=== PATIENT | female | born 1950 | race Asian ===

== ENCOUNTER 2023-10-04 07:40 | Outpatient (CLI) | payer MEDICARE | END 2023-10-04 07:41 | disposition home or self-care (01) | LOC: EDUNIT# 07:40 → CSHMAMMO 07:40 | PROVIDERS: ATTEND Internal Medicine | DX: N64.89 Other specified disorders of breast (principal); R92.331 Mammographic heterogeneous density, right breast | CPT/HCPCS: 76642; 77065; G0279 ==

== ENCOUNTER 2024-04-07 13:18 | Outpatient (CLI) | payer MEDICARE | END 2024-04-07 13:19 | disposition home or self-care (01) | LOC: CSHMAMMO 13:18 | PROVIDERS: ATTEND Internal Medicine | DX: R92.8 Other abnormal and inconclusive findings on diagnostic imaging of breast (principal); N64.89 Other specified disorders of breast | CPT/HCPCS: 76642; 77065; G0279 ==

== ENCOUNTER 2024-09-23 14:30 | Outpatient (CLI) | payer MEDICARE | END 2024-09-23 14:31 | disposition home or self-care (01) | LOC: CSHMAMMO 14:30 | PROVIDERS: ATTEND Specialist | DX: N63.10 Unspecified lump in the right breast, unspecified quadrant (principal) | CPT/HCPCS: 77066; G0279 ==